=== PATIENT | female | born 1970 | race Caucasian/White ===

== ENCOUNTER 2018-03-03 12:10 | Inpatient (IN) | payer MEDICAID, OTHER ==
[2018-03-03] MEDS ORDERED: 0.9 % SODIUM CHLORIDE 1,000 ML BAG IV ONE (12:24)
[2018-03-03] MEDS ORDERED: ONDANSETRON HCL IV 4 MG/2 ML VIAL IVP ONE (12:24)
[2018-03-03] MEDS ORDERED: ACETAMINOPHEN 1,000 MG/100 ML BTL IVPB ONE (12:24)
--- NOTE | 2018-03-03 12:29 | Emergency Department Record ---
History of Present Illness - General Chief Complaint: Abdominal Pain Stated Complaint: ABDOMINAL PAIN Time Seen by Provider: 03/03/18 12:15 Source: Patient Mode of Arrival: Ambulatory Limitations: No limitations - History of Present Illness Initial Comments: 47 yo female presents with intermittent RUQ for about 10 months. She states when it occurs she has pain with eating, nausea, and vomiting. The last 5 days the symptoms have been present. She has seen her PCP in [place] for the symptoms in the past. She has been told it was likely her gallbladder. She has never undergone and imaging of her abdomen. She has not seen a surgeon. No fevers. She has had some loose stools as well. She has had her appendix removed and had C sections. MD Complaint: Abdominal pain -: Month(s) (10) Location: RUQ Radiation: RUQ Migration to: RUQ Quality: Aching Consistency: Intermittent Improves With: Nothing Worsens With: Eating Associated Symptoms: Anorexia Treatments Prior to Arrival: NSAIDs - Related Data Patient : No Home Medications Medication Instructions Recorded Confirmed Last Taken Atorvastatin Calcium 20 mg PO DAILY 03/03/18 03/03/18 03/03/18 Gabapentin [Neurontin] 600 mg PO QHS 03/03/18 03/03/18 03/02/18 Ibuprofen [Ibu] 800 mg PO ASDIR 03/03/18 03/03/18 03/03/18 Lisinopril 10 mg PO DAILY 03/03/18 03/03/18 03/03/18 Pantoprazole Sodium [Protonix] 40 mg PO DAILY 03/03/18 03/03/18 03/03/18 Allergies Allergy/AdvReac Type Severity Reaction Status Date / Time furosemide [From Lasix] Allergy SWELLING Verified 03/03/18 12:45 (GENERAL) Review of Systems Constitutional: Denies: Chills, Fever, Malaise, Weakness Eyes: Denies: Eye discharge, Eye pain, Photophobia, Vision change ENT: Denies: Congestion, Throat pain Respiratory: Denies: Cough, Dyspnea, Hemoptysis, Stridor, Wheezes Cardiovascular: Denies: Chest pain, Syncope, Other Endocrine: Denies: Fatigue, Polydipsia, Polyuria Gastrointestinal: Reports: As per HPI, Abdominal pain, Diarrhea, Nausea, Vomiting Genitourinary: Denies: Dysuria, Urgency Musculoskeletal: Denies: Arthralgia, Back pain, Joint swelling, Myalgia Skin: Denies: Bruising, Change in color, Rash Neurological: Denies: Headache, Numbness, Weakness Psychiatric: Denies: Anxiety Hematological/Lymphatic: Denies: Blood Clots, Easy bleeding, Easy bruising, Swollen glands Physical Exam - General General Appearance: Alert, Oriented x3, Cooperative, No acute distress Limitations: No limitations - Head Head exam: Normal inspection - Eye Eye exam: Normal appearance, PERRL. negative: Conjunctival injection, Scleral icterus - ENT ENT exam: Normal exam Ear exam: Normal external inspection Nasal Exam: Normal inspection Mouth exam: Normal external inspection - Neck Neck exam: Normal inspection, Full ROM. negative: Tenderness - Respiratory Respiratory exam: Normal lung sounds bilaterally. negative: Respiratory distress - Cardiovascular Cardiovascular Exam: Regular rate, Normal rhythm, Normal heart sounds - GI/Abdominal GI/Abdominal exam: Soft, Normal bowel sounds, Tenderness (Very soft abdomen, mildly tender RUQ with deep palpation, no other abdominal tenderness, very soft) - Rectal Rectal exam: Deferred - exam: Deferred - Extremities Extremities exam: Normal inspection, Full ROM, Normal capillary refill. negative: Tenderness - Back Back exam: Reports: Normal inspection, Full ROM. Denies: Muscle spasm, Rash noted, Tenderness - Neurological Neurological exam: Alert, Normal gait, Oriented X3 - Psychiatric Psychiatric exam: Normal affect, Normal mood - Skin Skin exam: Dry, Intact, Normal color, Warm Course - Reevaluation(s) Reevaluation #1: 03/03/18 14:33 The CBC demonstrated a WBC of 12.3 The Lipase and LFT's are normal CR is 1.3 with AG of 20 03/03/18 14:42 CT scan demonstrates a very large gallstone with gall bladder distension. The pain is 5/10 Abdomen is soft but gas tender RUQ Dr Quinn of General Surgery paged. 03/03/18 14:[address] Quinn of We discussed the labs and CT He recommends admission on IVF, antibiotics with anticipated surgery Monday AM. 03/03/18 15:07 The case was discussed with Emi Morejon of the admission service She accepts the patient for admission with surgical consultation. Medical Decision Making - Lab Data Result diagrams: 03/03/18 12:32 03/03/18 12:32 Disposition Disposition: Admit Clinical Impression: Gall stone Qualifiers: Cholecystitis presence: without cholecystitis Biliary obstruction: with biliary obstruction Qualified Code(s): K80.21 - Calculus of gallbladder without cholecystitis with obstruction Disposition: Still a Patient at [facility] Decision to Admit: Admit from ER Decision to Admit Date: 03/03/18 Decision to Admit Time: 14:51 Condition: (1) Good Time of Disposition: 14:51 Quality - Quality Measures Quality Measures: N/A - Blood Pressure Screening Does Patient Have Any of the Following: No Blood Pressure Classification: Pre-Hypertensive BP Reading Systolic Measurement: 116 Diastolic Measurement: 82 Screening for High Blood Pressure: < Pre-Hypertensive BP, F/U Documented > [ G8950] Pre-Hypertensive Follow-up Interventions: Referral to alternative/primary care provider.
[2018-03-03 12:40] LABS: BASO % 0.2 % (0-6); EOS % 0.5 % (0-6); GRAN % 69.3 % (47-80); HEMOGLOBIN 15.1 gm/dl (11.6-16.0); LYMPH % 17.8 % (16-45); MEAN CELL VOLUME 87.5 fl (81-97); MEAN CORPUSCULAR HGB CONC 34.3 g/dl (32-36); MEAN PLATELET VOLUME 10.6 fl (7.4-10.4); MONO % 12.2 % (0-9); PLATELET COUNT 404 K/uL (130-400); RED BLOOD COUNT 5.03 M/uL (3.80-5.40); RED CELL DISTRIBUTION WIDTH 14.6 % (11.5-14.5); WHITE BLOOD COUNT W/O DIFF 12.7 K/uL (4.2-12.2)
[2018-03-03 12:53] LABS: BILIRUBIN,TOTAL 0.3 mg/dL (0.2-1.0); CREATININE 1.3 mg/dL (0.5-0.9)
[2018-03-03 12:54] LABS: TOTAL PROTEIN 8.7 g/dL (6.6-8.7)
[2018-03-03 12:59] LABS: ALBUMIN 4.3 g/dL (4.0-5.0)
[2018-03-03] MEDS ORDERED: ERTAPENEM SODIUM 1 G in 0.9 % SODIUM CHLORIDE 100ML 100 ML IVPB ONE (14:51)
[2018-03-03] MEDS ORDERED: 0.9 % SODIUM CHLORIDE 1000ML 1,000 ML IV ONE (14:51)
[2018-03-03] MEDS ORDERED: MORPHINE SULFATE 4MG/ML PREFILLED SYRINGE IVP PRN (15:41)
[2018-03-03] MEDS ORDERED: ONDANSETRON HCL IV 4 MG/2 ML VIAL IVP PRN (15:41)
[2018-03-03] MEDS: POTASSIUM CHLORIDE/D5-0.9%NACL 20 MEQ/1,000 ML BAG IV SCH (17:52)
[2018-03-03] MEDS: ACETAMINOPHEN 1,000 MG/100 ML BTL IVPB SCH ×2 (18:44→23:41)
[2018-03-03] MEDS: GABAPENTIN 300 MG CAPSULE PO SCH (22:14)
[2018-03-04] MEDS: POTASSIUM CHLORIDE/D5-0.9%NACL 20 MEQ/1,000 ML BAG IV SCH ×3 (02:38→21:49)
[2018-03-04 05:50] LABS: BASO % 0.2 % (0-6); GRAN % 56.3 % (47-80); HEMATOCRIT 36.1 % (35.0-47.0); HEMOGLOBIN 12.4 gm/dl (11.6-16.0); LYMPH % 28.3 % (16-45); MEAN CELL VOLUME 88.3 fl (81-97); MEAN CORPUSCULAR HEMOGLOBIN 30.3 pg (27-33); MEAN CORPUSCULAR HGB CONC 34.3 g/dl (32-36); MEAN PLATELET VOLUME 10.1 fl (7.4-10.4); MONO % 13.2 % (0-9); PLATELET COUNT 312 K/uL (130-400); RED BLOOD COUNT 4.09 M/uL (3.80-5.40); RED CELL DISTRIBUTION WIDTH 14.3 % (11.5-14.5); WHITE BLOOD COUNT W/O DIFF 10.2 K/uL (4.2-12.2)
[2018-03-04] MEDS: ACETAMINOPHEN 1,000 MG/100 ML BTL IVPB SCH ×4 (05:50→23:34)
[2018-03-04 06:08] LABS: ALBUMIN 3.5 g/dL (4.0-5.0); ALKALINE PHOSPHATASE 63 U/L (35-104); ALT/SGPT 12 U/L (<33); AST/SGOT 13 U/L (10.0-35.0); BLOOD UREA NITROGEN 11 mg/dL (6-20); CREATININE 0.9 mg/dL (0.5-0.9); EST GLOMERULAR FILTRATION RATE > 60 mL/min; GLUCOSE,RANDOM 115 mg/dL (74-109); LIPASE 79 U/L (13-60); TOTAL PROTEIN 6.9 g/dL (6.6-8.7)
[2018-03-04] MEDS: PANTOPRAZOLE SODIUM IV 40 MG VIAL IV SCH (09:10)
--- NOTE | 2018-03-04 13:48 | History & Physical ---
History of Present Illness - Date of Service Date of Service for History & Physical: 03/04/18 - History of Present Illness Admitting Diagnosis: Gall stones, biliary colic History of Present Illness: 47yo female with CC of abdominal pain. She has history of HTN, Reflux. she has had intermittent RUQ pain for the past 5 months. She says the current episode began 5 days ago. She has had some nausea after eating but no vomiting or fever. While in the ED, she was afebrile, WBC count was 12.7. LFT's were within normal range and lipase was 32. Tbili 0.3. She underwent CT scan of the abdomen showing a large gallstone with gallbladder distension. ED physician contacted Dr. Quinn, general surgery, who recommended admission with IV abx, fluids and cholecystectomy on 03/05/18. 03/04/18- Patient states she is feeling much better today. She is not currently having any pain. She has been tolerating her clear liquid diet without nausea or stomach pain. She has had loose stool since this episode started about 5 days ago. She denies fevers, chills, lower abdominal pain, pain with urination. Travel Screening - Travel/Exposure Within Last 30 Days Have you traveled within the last 30 days?: No - Travel/Exposure Within Last Year Have you traveled outside the [place] in the last year?: No - Additonal Travel Details Have you been exposed to anyone with a communicable illness?: No - Travel Symptoms Symptom Screening: None Review of Systems Constitutional: Denies: Chills, Fever, Malaise, Weakness Eyes: Denies: Eye discharge, Eye pain, Photophobia, Vision change ENT: Denies: Congestion, Throat pain Respiratory: Denies: Cough, Dyspnea, Hemoptysis, Stridor, Wheezes Cardiovascular: Denies: Chest pain, Syncope, Other Endocrine: Denies: Fatigue, Polydipsia, Polyuria Gastrointestinal: Reports: As per HPI, Abdominal pain, Diarrhea, Nausea, Vomiting Genitourinary: Denies: Dysuria, Urgency Musculoskeletal: Denies: Arthralgia, Back pain, Joint swelling, Myalgia Skin: Denies: Bruising, Change in color, Rash Neurological: Denies: Headache, Numbness, Weakness Psychiatric: Denies: Anxiety Hematological/Lymphatic: Denies: Blood Clots, Easy bleeding, Easy bruising, Swollen glands Past Medical History - SOCIAL HISTORY Smoking Status: Former smoker - RESPIRATORY Hx Respiratory Disorders: No - CARDIOVASCULAR Hx Cardio Disorders: Yes Hx Hypertension: Yes - NEURO Hx Neuro Disorders: No - GI Hx GI Disorders: Yes Hx Abdominal Pain: Yes Hx Reflux: Yes Hx Nausea/Vomiting: Yes Hx Wt Loss/Wt Gain: Yes Comment:: 19lbs in two weeks/ low carb diet - Hx Genitourinary Disorders: No - ENDOCRINE Hx Endocrine Disorders: No - MUSCULOSKELETAL Hx Musculoskeletal Disorders: No - PSYCH Hx Psych Problems: No - HEMATOLOGY/ONCOLOGY Hx Hematology/Oncology Disorders: No Family Medical History Any Significant Family History?: No H&P Meds/Allergies - Allergies Allergies: Allergies Allergy/AdvReac Type Severity Reaction Status Date / Time furosemide [From Lasix] Allergy SWELLING Verified 03/03/18 12:45 (GENERAL) - Home Medications Home Medications Medication Instructions Recorded Confirmed Last Taken Atorvastatin Calcium 20 mg PO DAILY 03/03/18 03/03/18 03/03/18 Gabapentin [Neurontin] 600 mg PO QHS 03/03/18 03/03/18 03/02/18 Ibuprofen [Ibu] 800 mg PO ASDIR 03/03/18 03/03/18 03/03/18 Lisinopril 10 mg PO DAILY 03/03/18 03/03/18 03/03/18 Pantoprazole Sodium [Protonix] 40 mg PO DAILY 03/03/18 03/03/18 03/03/18 - Active Medications Active Medications: Current Medications Gabapentin (Neurontin) 600 mg PO QHS [facility] Last Admin: 03/03/18 22:14 Dose: 600 mg Ertapenem 1 g/ Sodium Chloride 100 mls @ 200 mls/hr IVPB Q24H ONEL Acetaminophen (Ofirmev) 1,000 mg in 100 mls @ 400 mls/hr IVPB Q6H ONEL Last Admin: 03/04/18 05:50 Dose: 400 mls/hr Potassium Chloride/Dextrose/Sod Cl () 20 meq in 1,000 mls @ 125 mls/hr IV Q8H ONEL Last Admin: 03/04/18 02:38 Dose: 125 mls/hr Metoclopramide HCl (Reglan) 5 mg IV Q6H PRN PRN Reason: NAUSEA Morphine Sulfate (Morphine Sulfate) 4 mg IVP Q4H PRN PRN Reason: Pain - General Ondansetron HCl (Zofran) 4 mg IVP Q4H PRN PRN Reason: NAUSEA Last Admin: 03/03/18 15:53 Dose: 4 mg Pantoprazole Sodium (Protonix Iv) 40 mg IV DAILY ONEL Last Admin: 03/04/18 09:10 Dose: 40 mg Physical Exam - Vital Signs Vital Signs: Vital Signs - Last 24 Hrs Temp Pulse Pulse Resp BP BP Pulse Ox 03/04/18 11:00 97.8 F 93 H 18 118/77 99 03/03/18 23:00 97.7 F 83 16 103/55 100 03/03/18 21:00 16 03/03/18 18:55 116/82 03/03/18 15:41 105 H 18 116/82 99 03/03/18 15:15 81 18 121/83 98 03/03/18 14:34 82 18 121/86 98 - General General Appearance: Alert, Oriented x3, Cooperative, No acute distress Limitations: No limitations - Head Head exam: Normal inspection - Eye Eye exam: Normal appearance, PERRL. negative: Conjunctival injection, Scleral icterus - ENT ENT exam: Normal exam Ear exam: Normal external inspection Nasal Exam: Normal inspection Mouth exam: Normal external inspection - Neck Neck exam: Normal inspection, Full ROM. negative: Tenderness - Respiratory Respiratory exam: Normal lung sounds bilaterally. negative: Respiratory distress - Cardiovascular Cardiovascular Exam: Regular rate, Normal rhythm, Normal heart sounds - GI/Abdominal GI/Abdominal exam: Soft, Normal bowel sounds, Tenderness (Very soft abdomen, mildly tender RUQ with deep palpation, no other abdominal tenderness, very soft) - Rectal Rectal exam: Deferred - exam: Deferred - Extremities Extremities exam: Normal inspection, Full ROM, Normal capillary refill. negative: Tenderness - Back Back exam: Reports: Normal inspection, Full ROM. Denies: Muscle spasm, Rash noted, Tenderness - Neurological Neurological exam: Alert, Normal gait, Oriented X3 - Psychiatric Psychiatric exam: Normal affect, Normal mood - Skin Skin exam: Dry, Intact, Normal color, Warm Results - Labs Result Diagrams: 03/04/18 05:45 03/04/18 05:45 Labs Last 24 Hours: Laboratory Results - last 24 hr 03/04/18 03/04/18 05:45 05:45 WBC 10.2 RBC 4.09 Hgb 12.4 Hct 36.1 MCV 88.3 MCH 30.3 MCHC 34.3 RDW 14.3 Plt Count 312 MPV 10.1 Gran % 56.3 Lymphocytes % 28.3 Monocytes % 13.2 H Eosinophils % 2.0 Basophils % 0.2 Sodium 140 Potassium 4.0 Chloride 100 Carbon Dioxide 26.0 Anion Gap 14.0 BUN 11 Creatinine 0.9 Estimated GFR > 60 Random Glucose 115 H Calcium 9.2 Total Bilirubin 0.20 AST 13 ALT 12 Alkaline Phosphatase 63 Total Protein 6.9 Albumin 3.5 L Globulin 3.4 Albumin/Globulin Ratio 1.0 L Lipase 79 H VTE H&P Assessment - Risk for VTE Risk for VTE: Yes Risk Level: Low Risk Assessment Date: 03/04/18 Risk Assessment Time: 15:38 VTE Orders Placed or Will Be Placed: No VTE Reason for No Prophylaxis: Not Indicated Plan - Inpatient Certification Inpatient Certification: Admit to inpatient care: Based on my medical assessment, after consideration of patient's risk factors (age, co-morbidities and patient presenting symptoms and acuity), I expect that this patient will remain in the hospital greater than or equal to two midnights and that the services needed warrant inpatient care because: Patient Risk Factors: [age, Biliary colic with cholelithiasis] Estimated length of stay: [24-48h] The patient may reasonably be expected to be discharged or transferred to a hospital within 96 hours after admission to [facility]. Services needed: [iv ABX, CHOLECYSTECTOMY] Post hospital care (if known): [] I certify that my determination is in accordance with my understanding of Medicare requirements for reasonable and necessary inpatient services. 03/04/18 13:48 - Detailed Diagnosis and Plan (1) Gall stone Current Visit: Yes Status: Acute Qualifiers: Cholecystitis presence: without cholecystitis Biliary obstruction: with biliary obstruction Qualified Code(s): K80.21 - Calculus of gallbladder without cholecystitis with obstruction Base Code: K80.20 - CALCULUS OF GALLBLADDER W/O CHOLECYSTITIS W/O OBSTRUCTION Comment: 03/04/18- CT scan abdomen on 03/04/18 showing large gall stone with gallbladder distension. AST/ALT, alk phos and bili within normal range. lipase 79. She remains afebrile. -continue IV invanz 1gm q24H -continue antiemetics prn -continue clear liquids until midnight then npo -plan for cholecystectomy 03/[address] Quinn (2) Full code status Current Visit: Yes Status: Acute Base Code: Z78.9 - OTHER SPECIFIED HEALTH STATUS Comment: 03/04/18- patient is full code
--- NOTE | 2018-03-04 13:53 | CT SCAN REPORT ---
EXAM: CT SCAN ABDOMEN/PELVIS WO CONTRAST HISTORY: VOMITING AND DIARRHEA. TECHNIQUE: Sequential axial images were obtained from the diaphragms through the ischiorectal fossa after oral administration of contrast material. No intravenous contrast was administered. FINDINGS: The visualized lung bases appear normal. There is a large stone present within the gallbladder neck. There is gallbladder distention. No ductal dilatation is appreciated. The pancreas and spleen appear normal. The adrenal glands and kidneys appear normal. The small bowel appears normal. The colon appears normal. The uterus and adnexal structures are normal. The urinary bladder appears normal. IMPRESSION: LARGE GALLSTONE PRESENT WITHIN THE GALLBLADDER NECK. THERE IS GALLBLADDER DISTENTION. NO DUCTAL DILATATION. JOB NUMBER: [id number] MTDD
[2018-03-04] MEDS ORDERED: ERTAPENEM SODIUM 1 G in 0.9 % SODIUM CHLORIDE 100ML 100 ML IVPB SCH (15:00)
[2018-03-04] MEDS: GABAPENTIN 300 MG CAPSULE PO SCH (21:48)
[2018-03-05] MEDS: POTASSIUM CHLORIDE/D5-0.9%NACL 20 MEQ/1,000 ML BAG IV SCH ×3 (00:27→13:23)
[2018-03-05] MEDS: ACETAMINOPHEN 1,000 MG/100 ML BTL IVPB SCH ×2 (06:00→13:19)
--- NOTE | 2018-03-05 07:36 | Discharge Summary ---
Providers Discharge Summary Date: 03/05/18 Date of admission: 03/03/18 15:17 Expected Date of Discharge: 03/05/18 Attending physician: KEV PICKETT Primary care physician: NATANAEL SIERRA Consults: Consult Orders 03/03/18 15:41 Consult NOW Consulting Provider: Lawrence Farrar Physician Instructions: Reason For Exam: gall stones, biliary colic Physical Exam - Vital Signs Vital Signs: Vital Signs - Last 24 Hrs Temp Pulse Resp BP Pulse Ox 03/05/18 03:00 97.9 F 83 16 126/84 100 03/04/18 21:00 16 03/04/18 18:31 98 F 83 16 115/70 97 03/04/18 11:00 97.8 F 93 H 18 118/77 99 - General General Appearance: Alert, Oriented x3, Cooperative, No acute distress Limitations: No limitations - Head Head exam: Normal inspection - Eye Eye exam: Normal appearance, PERRL. negative: Conjunctival injection, Scleral icterus - ENT ENT exam: Normal exam Ear exam: Normal external inspection Nasal Exam: Normal inspection Mouth exam: Normal external inspection - Neck Neck exam: Normal inspection, Full ROM. negative: Tenderness - Respiratory Respiratory exam: Normal lung sounds bilaterally. negative: Respiratory distress - Cardiovascular Cardiovascular Exam: Regular rate, Normal rhythm, Normal heart sounds - GI/Abdominal GI/Abdominal exam: Soft, Normal bowel sounds, Tenderness (generalized ttp ), Other (surgical incision sites covered) - Rectal Rectal exam: Deferred - exam: Deferred - Extremities Extremities exam: Normal inspection, Full ROM, Normal capillary refill. negative: Tenderness - Back Back exam: Reports: Normal inspection, Full ROM. Denies: Muscle spasm, Rash noted, Tenderness - Neurological Neurological exam: Alert, Normal gait, Oriented X3 - Psychiatric Psychiatric exam: Normal affect, Normal mood - Skin Skin exam: Dry, Intact, Normal color, Warm Hospitalization - Hospitalization Admission Diagnosis: Gall stones, biliary colic - Problem List/Discharge Diagnosis (1) Gall stone Current Visit: Yes Status: Acute Discharge Diagnosis: Cholecystitis presence: without cholecystitis Biliary obstruction: with biliary obstruction Qualified Code(s): K80.21 - Calculus of gallbladder without cholecystitis with obstruction Base Code: K80.20 - CALCULUS OF GALLBLADDER W/O CHOLECYSTITIS W/O OBSTRUCTION Comment: 03/05/18- CT scan abdomen on 03/04/18 showing large gall stone with gallbladder distension. -s/p lap eun performed by Dr. farrar today. post-op discharge criteria met. -tolerating clear liquids. ambulating without difficulty. voiding urine without issue. -follow up for post-op visit with Dr. Farrar as scheduled -will send in script for reglan as needed for nausea -has script for pain medication written by Dr. Farrar (2) Full code status Current Visit: Yes Status: Acute Base Code: Z78.9 - OTHER SPECIFIED HEALTH STATUS Comment: 03/05/18- patient is full code - Hospitalization Course Disposition: Home, Self-Care Hospital Course: 47yo female with CC of abdominal pain. She has history of HTN, Reflux. she has had intermittent RUQ pain for the past 5 months. She says the current episode began 5 days ago. She has had some nausea after eating but no vomiting or fever. While in the ED, she was afebrile, WBC count was 12.7. LFT's were within normal range and lipase was 32. Tbili 0.3. She underwent CT scan of the abdomen showing a large gallstone with gallbladder distension. ED physician contacted Dr. Farrar, general surgery, who recommended admission with IV abx, fluids and cholecystectomy on 03/05/18. 03/04/18- Patient states she is feeling much better today. She is not currently having any pain. She has been tolerating her clear liquid diet without nausea or stomach pain. She has had loose stool since this episode started about 5 days ago. She denies fevers, chills, lower abdominal pain, pain with urination. 03/05/18- patient resting in bed s/p lap eun. Surgery went well. She has been up ambulating independently, voiding urine and tolerating clear liquids. She has some generalized tenderness and some mild nausea but improved with reglan. no vomiting. Feeling ready to go home. Procedures: Imaging and X-Rays 03/03/18 13:47 ABDOMEN/PELVIS WO CONTRAST [CT] Stat Abnormal Labs: Abnormal Lab Results 03/03/18 03/03/18 03/04/18 Range/Units 12:32 12:32 05:45 WBC 12.7 H (4.2-12.2) K/uL RDW 14.6 H (11.5-14.5) % Plt Count 404 H (130-400) K/uL MPV 10.6 H (7.4-10.4) fl Monocytes % 12.2 H 13.2 H (0-9) % Chloride 90 L (98-107) mmol/L Anion Gap 20.0 H (7-16) Creatinine 1.3 H (0.5-0.9) mg/dL Random Glucose (74-109) mg/dL Calcium 10.4 H (8.6-10.0) mg/dL Albumin (4.0-5.0) g/dL Albumin/Globulin Ratio 1.0 L (1.1-1.8) Lipase (13-60) U/L 03/04/18 Range/Units 05:45 WBC (4.2-12.2) K/uL RDW (11.5-14.5) % Plt Count (130-400) K/uL MPV (7.4-10.4) fl Monocytes % (0-9) % Chloride (98-107) mmol/L Anion Gap (7-16) Creatinine (0.5-0.9) mg/dL Random Glucose 115 H (74-109) mg/dL Calcium (8.6-10.0) mg/dL Albumin 3.5 L (4.0-5.0) g/dL Albumin/Globulin Ratio 1.0 L (1.1-1.8) Lipase 79 H (13-60) U/L Condition at Discharge: (1) Good Discharge Medications - Discharge Medications Prescriptions: Metoclopramide HCl [Reglan] 10 mg PO QID PRN #20 tablet PRN Reason: nausea Home Medications: Ambulatory Orders Atorvastatin Calcium 20 mg PO DAILY 03/03/18 [Last Taken 03/03/18] Gabapentin [Neurontin] 600 mg PO QHS 03/03/18 [Last Taken 03/02/18] Ibuprofen [Ibu] 800 mg PO ASDIR 03/03/18 [Last Taken 03/03/18] Lisinopril 10 mg PO DAILY 03/03/18 [Last Taken 03/03/18] Pantoprazole Sodium [Protonix] 40 mg PO DAILY 03/03/18 [Last Taken 03/03/18] Metoclopramide HCl [Reglan] 10 mg PO QID PRN #20 tablet 03/05/18 [Last Taken Unknown] Discharge Plan - Discharge Instructions Activity at Discharge: Resume Usual Activities As Tolerated Diet at Discharge: Advance to Usual Diet Additional Instructions: follow up with Dr. Farrar as scheduled Resume home medications Advance diet as tolerating Follow activity restrictions per surgery May use Reglan 10mg by mouth up to 4 times daily for nausea as needed Please call with any questions or concerns Quality Measures - Quality Measures Quality Measures: Documentation of Current Medications in Medical Record, Screening for High Blood Pressure and F/U Documented - Current Medications Quality Measure: Measure #130: Documentation of Current Medications Documentation of Current Medications: <Current Medications Documented/Reviewed> [G8427] - Blood Pressure Screening Quality Measure: Screening for High Blood Pressure and Follow-Up Documented Does Patient Have Any of the Following: Active Dx of HTN Blood Pressure Classification: Pre-Hypertensive BP Reading Systolic Measurement: 126 Diastolic Measurement: 84 Screening for High Blood Pressure: Patient Exclusion, Hx of HTN [G9744] - Elder Abuse Suspicion Index EASI Reference Information: Isaías ARIAS, Miguel C, Leigh D, Lo Godoy.Development and validation of a tool to assist physicians identification of elder abuse: The Elder Abuse Suspicion Index (EASI ). Journal of Elder Abuse and Neglect, 2008; 20 (3): 276-300.
[2018-03-05] MEDS: METOCLOPRAMIDE HCL 10 MG/2 ML VIAL IV PRN ×2 (08:34→12:49)
[2018-03-05 08:57] LABS: HEMATOCRIT 38.6 % (35.0-47.0); HEMOGLOBIN 12.5 gm/dl (11.6-16.0); MEAN CORPUSCULAR HEMOGLOBIN 29.1 pg (27-33); MEAN CORPUSCULAR HGB CONC 32.4 g/dl (32-36); MEAN PLATELET VOLUME 10.1 fl (7.4-10.4); PLATELET COUNT 334 K/uL (130-400); RED BLOOD COUNT 4.29 M/uL (3.80-5.40); RED CELL DISTRIBUTION WIDTH 14.8 % (11.5-14.5); WHITE BLOOD COUNT W/O DIFF 8.2 K/uL (4.2-12.2)
[2018-03-05 09:06] LABS: BLOOD UREA NITROGEN 4 mg/dL (6-20); CREATININE 0.6 mg/dL (0.5-0.9); EST GLOMERULAR FILTRATION RATE > 60 mL/min; GLUCOSE,RANDOM 95 mg/dL (74-109)
[2018-03-05] MEDS: PANTOPRAZOLE SODIUM IV 40 MG VIAL IV SCH (12:41)
[2018-03-05] MEDS ORDERED: HYDROMORPHONE HCL 2 MG/ML VIAL IVP PRN (12:56)
[2018-03-05] MEDS ORDERED: HYDROCODONE/APAP 5/325MG TABLET PO PRN ×2 (12:57)
[2018-03-05] MEDS ORDERED: BUPIVACAINE 0.25% W/EPI MPF 30ML VIAL IVP ONE (14:34)
[2018-03-05] MEDS ORDERED: LIDOCAINE 2% MDV (20MG/ML) 20ML VIAL IV ONE (16:03)
[2018-03-05] MEDS ORDERED: MIDAZOLAM HCL 2MG/2ML VIAL IV ONE (16:03)
[2018-03-05] MEDS ORDERED: DESFLURANE 240 ML BTL INH ONE (16:03)
[2018-03-05] MEDS ORDERED: ONDANSETRON HCL IV 4 MG/2 ML VIAL IVP ONE (16:03)
[2018-03-05] MEDS ORDERED: ROCURONIUM BROMIDE 50MG/5ML VIAL IV ONE (16:03)
[2018-03-05] MEDS ORDERED: METOCLOPRAMIDE HCL 10 MG/2 ML VIAL IVP ONE (16:03)
[2018-03-05] MEDS ORDERED: PROPOFOL 10 MG/ML VIAL IV ONE (16:03)
[2018-03-05] MEDS ORDERED: MORPHINE SULFATE 5 MG/ML PFS IVP ONE (16:03)
[2018-03-05] MEDS ORDERED: LABETALOL HCL 5MG/ML, 20ML VIAL IV ONE (16:03)
[2018-03-05] MEDS ORDERED: FENTANYL PF 100MCG/2ML VIAL IV ONE (16:03)
[2018-03-05] MEDS ORDERED: SUCCINYLCHOLINE 20 MG/ML 10ML IVP ONE (16:03)
--- NOTE | 2018-03-06 10:10 | Operative Note ---
DATE OF SURGERY: 03/05/2018 Surgeon: Lawrence Quinn DO PREOPERATIVE DIAGNOSIS: Acute on chronic cholecystitis. POSTOPERATIVE DIAGNOSIS: Acute on chronic cholecystitis. OPERATION: Laparoscopic cholecystectomy. Indication: The patient is a 47-year-old female who has had about a 6-month history of right upper quadrant pain. She states that this happens worse after eating. Imaging studies did reveal a distended and thickened gallbladder with a large stone impacted in the neck. She was admitted, kept on IV antibiotics and we did discuss cholecystectomy. Risks, benefits, and alternatives were discussed. Risks include but are not limited to bleeding, infection, ductal injury, possible conversion to open, postoperative bile leak. She understood this fully. Thereafter, consent was signed and questions answered. PROCEDURE: She was taken to the operating room and placed in a supine position. General anesthesia was administered per the department of anesthesia. The patient's abdomen was prepped and draped in the usual sterile fashion. Due to her morbid obesity, I did have to go in the supraumbilical region. Prior to the incision, an adequate timeout was performed. She had been receiving antibiotics. At this time, a supraumbilical incision was made. This was carried down to the anterior rectus fascia. This was incised. Mildred clamps were placed on the fascial edges and brought up into the wound. Stay sutures of 0 Vicryl were placed. Posterior rectus sheath was identified and incised. The peritoneal cavity was entered bluntly. At this time, a 10 mm blunt Andreina port was placed. Adequate pneumoperitoneum was established. Under direct visualization, additional 5 mm epigastric and two 5 mm right subcostal ports were placed. The gallbladder was very distended, tense, very elongated. I did use a Biermann needle to try to decompress this but this did not drain any bile. This was all thick gelatinous sludge. I did have to open this a bit further to put a suction catheter in to drain part of it because I was unable to grasp at this point. At this time, further cephalad and lateral retraction was applied. The hepatocystic triangle was thoroughly dissected out. There was no aberrant anatomy, no posterior ductal structures. I did release the distal half of the gallbladder from the cystic plate. This did elongate our space and our anatomy was clear. The cystic duct and cystic artery were clearly identified. Each one was circumferentially dissected out. Each one was doubly clipped and cut in a standard fashion. Gallbladder essentially peeled off the liver bed due to the inflamed nature. This was so big it did not even fit into an EndoCatch bag without further opening of the gallbladder and suctioning out sludge. This was extracted thru the umbilical port. I did have to enlarge this to accompany the massive nature of the gallbladder. At this time, we reinserted the camera. The right upper quadrant was then irrigated with approximately 2 liters normal saline and aspirated until clear. There was no bleeding noted. No bile leak noted. I did apply FloSeal to the liver bed. The patient was leveled out. The pneumoperitoneum was released. All ports were removed. The fascia was closed with 0 Vicryl in a [id number] fashion. The skin at all 3 ports was closed with 4-0 Vicryl. The patient was taken to the recovery room in satisfactory condition. FINDINGS AT THE TIME OF SURGERY: Acute on chronic cholecystitis. CC: MD Claudia Coates
== END 2018-03-05 16:04 | disposition home or self-care (01) | DRG 419 ==
LOC: ER 12:10 → MEDSURG 15:17
PROVIDERS: ADMIT Internal Medicine; ATTEND Internal Medicine
PROC: 0FT44ZZ Resection of Gallbladder, Percutaneous Endoscopic Approach (ICD-10-PCS; principal; 2018-03-03)
DX: K81.2 Acute cholecystitis with chronic cholecystitis (principal); E66.01 Morbid (severe) obesity due to excess calories
CPT/HCPCS: 74176; 80048; 80053; 83690; 85025; 85027; 96361; 96365; 96366; 96375; 99285; C9113; J0330; J2405; J2765; J3480; J7030